=== PATIENT | male | born 1975 | race Caucasian/White ===

== ENCOUNTER 2022-01-19 11:14 | Outpatient (CLI) | payer BC, SELFPAY ==
[2022-01-19 15:11] LABS: SARS PCR* Negative SARS-CoV-2 (Negative)
== END 2022-01-19 11:45 | disposition left against medical advice (07) ==
PROVIDERS: PCP Family Medicine
DX: Z20.822 Contact with and (suspected) exposure to COVID-19 (principal)
CPT/HCPCS: 87635

== ENCOUNTER 2022-01-20 09:21 | Outpatient (CLI) | payer BC, SELFPAY | END 2022-01-20 09:22 | disposition home or self-care (01) | LOC: OP CLINIC 09:22 | PROVIDERS: PCP Family Medicine; Visit Provider Surgery | DX: Z12.11 Encounter for screening for malignant neoplasm of colon (principal); K57.30 Diverticulosis of large intestine without perforation or abscess without bleeding | CPT/HCPCS: 45378; J2250; J3010 ==

== ENCOUNTER 2024-12-22 07:51 | Outpatient (CLI) | payer BC, SELFPAY | END 2024-12-22 07:52 | disposition home or self-care (01) | PROVIDERS: PCP Family Medicine; Visit Provider Family Medicine | DX: E78.5 Hyperlipidemia, unspecified (principal); Z13.1 Encounter for screening for diabetes mellitus; Z12.5 Encounter for screening for malignant neoplasm of prostate | CPT/HCPCS: 80061; 82947; G0103 ==